=== PATIENT | female | born 1970 | race Two or more races ===

== ENCOUNTER 2017-05-12 15:57 | Emergency (ER) | payer MEDICAID ==
[~2017-05-12] VITALS: Ht 162.6 cm; Wt 141.0 kg
[2017-05-12] MEDS ORDERED: CLONIDINE 0.2MG TABLET PO ONE (17:45)
[2017-05-12 18:20] LABS: BASOPHILS % 1.2 % (0.0-2.0); EOSINOPHILS % 1.2 % (0.0-5.0); HEMATOCRIT. 39.4 % (36.0-48.0); HEMOGLOBIN. 12.7 g/dL (12.0-16.0); LYMPHOCYTES % 26.8 % (20.0-50.0); MEAN CORPUSCULAR HEMOGLOBIN 26.5 pg (28.0-32.0); MEAN CORPUSCULAR VOLUME 82.2 fL (81.0-99.0); MEAN PLATELET VOLUME 9.1 fl (7.4-10.4); MONOCYTES % 7.4 % (2.0-8.0); NEUTROPHILS % 63.4 % (40.0-76.0); PLATELET 289 x1000/uL (130-400)
[2017-05-12 18:29] LABS: INR 1.1; PARTIAL THROMBOPLASTIN TIME 29.4 sec (23.4-31.0); PROTHROMBIN TIME 11.1 sec (9.4-11.6)
[2017-05-12 18:30] LABS: CARBON DIOXIDE 31 mEq/L (21-32); CHLORIDE 105 mEq/L (98-107)
[2017-05-12 18:37] LABS: TROPONIN I < 0.02 ng/mL (0.00-0.04)
[2017-05-12 19:50] LABS: HCG SCREEN NEGATIVE
[2017-05-12 21:00] VITALS: BP 156/100
== END 2017-05-12 21:02 | disposition home or self-care (01) ==
LOC: ER 17:57
DX: I16.0 Hypertensive urgency (principal); Z91.14 Patient's other noncompliance with medication regimen; M17.11 Unilateral primary osteoarthritis, right knee; R07.9 Chest pain, unspecified; I51.7 Cardiomegaly; Z90.49 Acquired absence of other specified parts of digestive tract
CPT/HCPCS: 36415; 71010; 73562; 80048; 84484; 84703; 85025; 85610; 85730; 93005; 99285; Z7610

== ENCOUNTER 2020-04-04 18:13 | Emergency (ER) | payer MEDICAID ==
[~2020-04-04] VITALS: Ht 157.5 cm; Wt 150.0 kg
[2020-04-04] MEDS ORDERED: PREDNISONE 20MG TABLET PO ONE (18:45)
[2020-04-04] MEDS ORDERED: IBUPROFEN 600MG TABLET PO ONE (18:45)
[2020-04-04] MEDS ORDERED: ACYCLOVIR 400 MG TABLET PO ONE (18:45)
[2020-04-04 20:04] VITALS: BP 148/87
== END 2020-04-04 20:47 | disposition home or self-care (01) ==
LOC: ER 18:13
DX: G51.0 Bell's palsy (principal); H60.502 Unspecified acute noninfective otitis externa, left ear; I10 Essential (primary) hypertension; Z90.49 Acquired absence of other specified parts of digestive tract
CPT/HCPCS: 93005; 99284; J7512